=== PATIENT | female | born 1965 ===

== ENCOUNTER 2018-03-03 11:04 | Day surgery (SDC) | payer MEDICARE, OTHER ==
[2018-02-28 10:45] VITALS: BMI 30.2
[2018-03-03] MEDS ORDERED: ceFAZolin IV 2 gm in Dextrose 2 GM/50 ML BAG IVPB ONE (12:29)
[2018-03-03] MEDS ORDERED: Bupivacaine 0.5% Inj(30mL) INFIL ONE (12:29)
[2018-03-03] MEDS ORDERED: Lidocaine 2% Inj (20ml) INFIL ONE (12:29)
[2018-03-03] MEDS ORDERED: ceFAZolin IV 1 gm in Dextrose 2 GM/100 ML BAG IVPB ONE (12:38)
--- NOTE | 2018-03-03 12:49 | CP.PCM.PN ---
Subjective - Date & Time of Evaluation Date of Evaluation: 03/03/18 Time of Evaluation: 12:42 - Subjective Subjective: Podiatry progress note for attending Dr. Jimenez: 58 y/o F patient with PMH of B. Asthma seen and evaluated postoperatively for fracture right ankle. patient states that she had fracture in her right ankle in february 19. Patient states the pain was unbearable when it happen but now the pain decreases a lot. Patient states that she is aware of her surgery today. Patient confirmed her fasting stats today. Patient denies any other pedal complaint. Patient denies any recent F/V/C or SOB but she has episode of nausea today morning. PMH: B. Asthma PSH: , Hysterectomy, Appendectomy. Allergies: NSAID. Social Hx: Ex-smoker, stopped 15 days ago (Used to smoke 1 ppd for 35 Years), denies EtOH use or illicit drug use. Objective - Vital Signs/Intake and Output Vital Signs (last 24 hours): Temp Pulse Resp BP Pulse Ox 97.5 F L 91 H 14 129/91 H 98 03/03/18 11:49 03/03/18 12:17 03/03/18 11:49 03/03/18 11:49 03/03/18 11:49 - Medications Medications: Current Medications Cefazolin Sodium/Dextrose (Ancef Iv 2 Gm Duplex) 2 gm in 50 mls @ 50 mls/hr IVPB ONCE ONE; Protocol Stop: 03/03/18 13:28 Sodium Chloride 1,000 ml/ IV (SUPPLIES) 1,000 mls @ 4,082.34 mls/hr IV ONCE ONE Stop: 03/03/18 12:43 - Constitutional Appears: Well, Non-toxic, No Acute Distress - Head Exam Head Exam: ATRAUMATIC, NORMOCEPHALIC - Extremities Exam Additional comments: R LE focused exam: R B/K cast left intact Vasc: Cap refill < 3 sec in all digits. Neuro: gross and protective sensations are intact. MSK: muscle power intact 5/5 in all groups. Patient can perform active ROM with her toes - Neurological Exam Neurological Exam: Alert, Awake, Oriented x3 - Psychiatric Exam Psychiatric exam: Normal Affect, Normal Mood Assessment and Plan - Assessment and Plan (Free Text) Assessment: 53 y/o F patient seen and evaluated at the bed side preoperatively for R ankle ORIF. Plan: Patient seen and evaluated at the bedside Pt was explained procedure and post-operative course Pt understands all risks, benefits and Pt was seen and examined in SDS Pt NPO status was confirmed All Pre-op testing and clearance was in the chart Pt has exhausted all conservative treatment at this time and is opting for surgical inteAll pt's questions were answered to satisfaction No guarantees were made Benefits, risks and complications of procedure explained to the patient Pt will follow-up with Dr. Oseguera in her office upon discharge.
--- NOTE | 2018-03-03 12:50 | CP.SDSHP ---
Same Day Surgery H & P - History Proposed Procedure: Right ankle ORIF Pre-Op Diagnosis: R ankle fracture - Previous Medical/Surgical History Pulmonary: Asthma Previous Surgical History: Hysterectomy, and appendectomy. - Allergies Allergies: Allergies NSAIDS (Non-Steroidal Anti-Inflamma Allergy (Verified 03/03/18 11:28) STOMACH UPSET - Physical Exam Vital Signs: Vital Signs 03/03/18 03/03/18 11:49 12:17 Temperature 97.5 F L Pulse Rate 95 H 91 H Respiratory 14 Rate Blood Pressure 129/91 H O2 Sat by Pulse 98 Oximetry - {Optional Preform as Required} Integument: Other - Impression Pt. Evaluated Today:Candidate for Anesthesia & Procedure: Yes - Date & Time Date: 03/03/18 Time: 12:50 Short Stay Discharge - Short Stay Discharge Admitting Diagnosis/Reason for Visit: M84.371A Disposition: HOME/ ROUTINE Referrals: Dashawn Vallejo MD [Primary Care Provider] - Additional Instructions (Diet, Activity): - Patient in good/stable condition for discharge home - Pt to resume medications per medical reconciliation - Resume regular diet - Please keep dressing clean, dry, & intact to surgical site - Use plastic bag over bandage for showering - Wear post op shoe at all times when ambulating - Call clinic if you see signs of infection (redness, swelling, malodor) - Please make an appointment to see in office within 1 week for post-op check. Progress Note/Discharge Note with Instructions: - Patient evaluated bedside in recovery s/p surgical procedure. - After surgical procedure patient in NAD - (+) Void, (+) Appetite - Capillary refill time <3 sec and NVS intact. - Patient denies complaints at this time - Post operative instructions and plan of care explained to patient at length. - Pt. acknowledges understanding. - Patient stable for D/C per podiatric surgery
[2018-03-03] MEDS ORDERED: Bupivacaine HCl 0.5% PF (30 ml) Inj ONE (13:22)
[2018-03-03] MEDS ORDERED: Midazolam 2 MG/2 ML VIAL ONE (13:25)
[2018-03-03] MEDS ORDERED: Lidocaine 1% 5ml Abboject ONE (13:25)
[2018-03-03] MEDS ORDERED: Propofol 10 mg/ml Inj (20 ML) ONE (13:25)
[2018-03-03] MEDS ORDERED: Dexamethasone 4 mg/1 ml ONE (13:25)
[2018-03-03] MEDS ORDERED: Lidocaine 2% Jelly (5 ml) TOP ONE (13:26)
[2018-03-03] MEDS ORDERED: Lactated Ringer's 1,000 ML IV ONE ×2 (13:30→20:13)
[2018-03-03] MEDS ORDERED: Oxycodone/Acetaminophen 5/325 mg Tab PO PRN ×2 (15:56)
[2018-03-03] MEDS ORDERED: Ropivacaine 0.5% 30ML IV ONE (16:05)
[2018-03-03] MEDS ORDERED: Bupivacaine HCl 0.25% PF (30 ml) Inj ONE (16:08)
--- NOTE | 2018-03-03 17:12 | PCM.SURG1 ---
Surgeon's Initial Post Op Note - Surgeon's Notes Surgeon: Dr. Enio Oseguera. DPM Primary Grade Teacher: Dr. Bairon Villarreal. DPM/PGY3, Dr. Rosenda Hoyt. DPM/PGY2 Type of Anesthesia: General LMA, Block Regional Anesthesia Administered By: Dr. Miller Pre-Operative Diagnosis: R ankle fracture Operative Findings: See Dictation. Injectables: None. Materials: Synthes Contour fibular plate+ screws. Post-Operative Diagnosis: Same Operation Performed: ORIF Right ankle Specimen/Specimens Removed: None Estimated Blood Loss: EBL {In ML}: 5 Blood Products Given: N/A Drains Used: No Drains Post-Op Condition: Good Date of Surgery/Procedure: 03/03/18 Time of Surgery/Procedure: 17:12
[2018-03-03] MEDS: HYDROmorphone 0.5 mg/0.5 ml ISec IVP PRN ×2 (17:13→17:49)
--- NOTE | 2018-03-03 17:17 | PCM.ANESB2 ---
Popliteal Nerve Block - Popliteal Nerve Block Date of Procedure: 03/03/18 Anesthesiologist: Dr. Miller Pre-Procedure Diagnosis: S/P ORIF right ankle fracture Post-Procedure Diagnosis: S/P ORIF right ankle fracture Procedure Performed: Popliteal Nerve Block Right - Procedure Popliteal Nerve Block: This procedure was explained to the patient that it is for post-operative pain management. Consent was obtained after a thorough discussion with the patient regarding the benefits and possible complications of local anesthetic block of the sciatic nerve at the popliteal level. The patient was brought to the operating room and standard monitors are applied. Time-out was held with the circulating nurse to confirm the correct surgery and the appropriate block. After the surgery while still under general anesthesia, patient's operative leg was gently raised and supported and the groove in between the biceps femoris and vastus lateralis muscles was carefully palpated. The skin approximately 8cm above the popliteal crease was then marked. The ultrasound transducer was then applied to the posterior thigh approximately 8cm above the popliteal crease in the transverse plane and the sciatic nerve before its division was visualized lateral to the popliteal artery and in between the bicep femoris and semimembranosus/semitendinosus muscles. After identification, the lateral portion of the thigh was prepped with Chloraprep solution. At this point, a # 20 gauge Stimuplex insulated 4 inch needle was inserted into pre-marked area and advanced in a perpendicular direction. The needle was inserted above the ultrasound transducer in-plane towards the sciatic nerve in a [id number] direction. Needle advancement was performed carefully under direct ultrasound visualization. Nerve stimulator was used and dorsiflexion of the right foot was elicited at a current of 0.3 MA. After repeated negative a spiration, 5cc of 0.5% Ropivacaine was injected and this was flowed with 15cc of 0.5% Ropivacaine. Under ultrasound guidance the local anesthetics were observed surrounding sciatic nerve . The needle was removed intact and sterile dressing was applied. The patient tolerated the popliteal nerve block well with stable vital signs and was subsequently awaken from anesthesia. Then transported to PACU.
--- NOTE | 2018-03-03 17:26 | PCM.ANESB7 ---
Adductor Canal Block - Adductor Canal Block Date of Procedure: 03/03/18 Anesthiologist: Dr. Miller Pre-Procedure Diagnosis: S/P ORIF right ankle fracture Post-Procedure Diagnosis: S/P ORIF right ankle fracture Procedure Performed: Adductor Canal Block Right - Procedure Adductor Canal Block: The procedure was explained to the patient that it is for the post-operative pain management. Consent was obtained after a thorough discussion with the patient regarding the benefits and possible complications of local anesthetic adductor canal block of the femoral nerve. Standard monitors, as defined by the ASA, were applied to the patient. Time-out was held with the circulating nurse to confirm the appropriate block. After the surgery while still under general anesthesia, the patient in supine position with and the operative leg was flexed slightly at the knee and externally rotated as needed, and was kept anatomically stable. The mid-thigh of the right lower extremity was exposed. The ultrasound transducer was then applied transversely along the medial aspect, about midway down the thigh and the femoral artery and vein were identified in appropriate relation with the sartorius muscle. At this time, the saphenous nerve was visualized lateral to the femoral artery within the canal. After thorough identification, this area area was prepped with Chloroprep solution. At this point, a #20 gauge Stimuplex 4-inch needle was inserted in-plane in a [id number] orientation, and advanced toward the saphenous nerve. Advancement was performed carefully under direct ultrasound visualization. After negative aspiration, 2cc of 0.25% Bupivacaine was injected and this was followed with 13cc of 0.25% Bupivacaine. Under ultrasound guidance the local anesthetics were observed spreading around the saphenous nerve. The needle was removed intact and sterile dressing was applied. The patient had stable vital signs, was awaken from anesthesia and in no apparent distress. The patient tolerated the saphenous nerve block well with stable vital signs and was transported to PACU.
[2018-03-03] MEDS ORDERED: Albuterol 0.083% Inhal Sol (2.5 mg/3 mL) UD INH ONE (19:45)
[2018-03-03] MEDS ORDERED: Albuterol 0.083% Inhal Sol (2.5 mg/3 mL) UD ONE (19:45)
[2018-03-03 21:54] VITALS: RESP 19
[2018-03-03 23:35] VITALS: BP 124/76; PULSE 98; TEMP 98.3; O2SAT 96
--- NOTE | 2018-03-04 14:07 | RAD ---
Date of service: 03/03/2018 PROCEDURE: Right Ankle Radiographs. HISTORY: S/P R ankle ORIF COMPARISON: None FINDINGS: BONES: Postoperative findings include orthopedic hardware distal tibia and fibula. JOINTS: Normal. No osteoarthritis. Ankle mortise maintained. Talar dome intact SOFT TISSUES: Normal. OTHER FINDINGS: None. IMPRESSION: Satisfactory postoperative status.
--- NOTE | 2018-03-04 18:35 | PCM.OP ---
Operative Report - Operative Report Date of Surgery/Procedure: 03/03/18 Time of Surgery/Procedure: 14:00 Surgeon: Dr. Oseguera Phonograph Mechanic: Dr. Rodriguez, Dr. Adelaide Villarreal, Dr. Hoyt Anesthesia/Sedation: General and regional popliteal block Pre-Operative Diagnosis: 1)Right ankle closed tri-malleolar fracture Post-Operative Diagnosis: same Indication for Surgery: Indications: The patient is a 53 year-old female with the above diagnoses. The patient signed the consent after careful explanation of risks, benefits, complication and alternatives for surgical procedure. No guarantees were given nor implied. 900 mg of clindamycin IV was given to the pt hour prior to the procedure. NPO status was confirmed prior to taking pt to the OR. Operative Findings: Preparation: The patient was brought to the operating room and placed on the operating room table in supine position. A well-padded pneumatic thigh tourniquet was placed to the patient's Right lower extremity. After induction of general anesthesia, the Right lower extremity was then prepped and draped in usual sterile manner. Esmarch was utilized to exsanguinate the patient's Right foot. Pneumatic ankle tourniquet was then inflated to 350 mmHg and procedure began. Procedure/Operation Description: Name of Procedure: 1)Right ankle open reduction and internal fixation. PROCEDURE: Right ankle open reduction and internal fixation. Attention was directed to the lateral aspect of right ankle and the fracture site was confirmed under the interaoperative fluoroscopy. An approximately 6 cm linear longitudinal incision was made overlying fibular staying central right over the bone. At this time, the incision was carried deep using sharp and blunt dissection, taking care to retract all vital neurovascular structures. All bleeders were cauterized and ligated as necessary. At the level of the periosteum, a sharp periosteal incision was made overlying the distal fibula to allow exposure to the fracture site. The periosteum was reflected with a sharp periosteal elevator to allow for visualization of the fracture site. At this time, was an oblique fracture site with a posterior spike was visualized. Next, a bone clamp was utilized to reduce the fracture site brining the distal fibula back out to length. Next, following basic AO principles and techniques, a 3.5 cortex screw was placed as a lag screw from anteroproximal to posterodistal direction across the fracture site providing excellent compressio. Next, a Synthes pre-contoured fibular plate was placed over the fracture site and utilizing standard AO tachniques and principles, holes were filled with five 2.7 locking screws and two 3.5 cortex screws. Next, the surgical site was flushed with sterile normal saline. All screw locations were confirmed to be in proper alignment under the intra operative fluoroscopy. Attention was re-directed to the medial aspect of the distal tibia of the right lower extremity. Utilizing #15 blade an approximately 5 cm curved linear incision was made overlying the tibia staying central over the bone. At this time, the incision was carried deep using sharp and blunt dissection, taking care to retract all vital neurovascular structures. All bleeders were cauterized and ligated as necessary. At the level of the periosteum, a sharp periosteal incision was made overlying the distal tibia to allow exposure to the fracture site. The periosteum was reflected with a sharp periosteal elevator. At this time, distal aspect of medial malleolus was noted to be fractured sagittal into two pieces comprised of anterior piece and a posterior piece. Utilizing a small bone clamp and a dental pick, the anterior fracture fragment of medial malleolus was reduced proximally brining the distal medial malleolus back out to length and was temporary fixated with two k-wires. Next, based on AO technique and principles, the fracture site was fixed with a 3.5 x 48 mm partially threaded cancellous screw. Next, temporary fixated k-wires were removed. Proper screw orientation was confirmed under intraoperative fluoroscopy. Next, attention was directed to the posterior fragment of the medial malleolus. Utilizing a small bone clamp and a dental pick, the posteior fracture fragment of medial malleolus was reduced proximally brining the distal medial malleolus back out to length and was temporary fixated with a k-wire. Next, based on AO technique and principles, the fracture site was fixed with a 2.7 x 10 mm fully threaded cortical screw. Next, temporary fixated k-wires were removed. Proper screw orientation was confirmed under intraoperative fluoroscopy. The surgical site was irrigated with copious amount of normal sterile saline. Next, under intra-operative fluoroscopy, inversion stress test of right ankle was performed and no diastasis of the tibia fibular space was noted, indicating intact syndesmotic ligament. Deep soft tissues of right ankle were reapproximated with #2-0, #3-0 and #4-0 Vicryl and Skin was reapproximated with #4-0 Prolene in horizontal mattress suture technique. Medial aspect of the right ankle was infiltrated with 10ml of 0.5% Marcaine plain. Right lower extremity was dressed with Betadine soaked adaptic, 4x4, Kerlix and a bivalve below knee hard cast. The attending was present during the entire case. Estimated Blood Loss: 15 mL Complications: None Discharge & Condition: Postoperative Condition: The patient tolerated the anesthesia and procedure well and was escorted to the recovery room with vital signs stable and neurovascular status intact to the Right foot. The patient received regional popliteal block by the anesthesiologist post operatively. This patient will follow up with Dr. Oseguera.
== END 2018-03-03 23:40 | disposition home or self-care (01) ==
LOC: H.OPSURG 11:04 → H.MEDSURG1 20:45 → H.OPSURG 23:40
PROVIDERS: ATTEND Student in an Organized Health Care Education/Training Program
DX: S82.851A Displaced trimalleolar fracture of right lower leg, initial encounter for closed fracture (principal); J45.909 Unspecified asthma, uncomplicated; Z87.891 Personal history of nicotine dependence; X58.XXXA Exposure to other specified factors, initial encounter
CPT/HCPCS: 27823; 73610; 97161; G8978; G8979; J0690; J1100; J1170; J2250; J2405; J2704; J2765; J3010; J7030; J7120

== ENCOUNTER 2018-03-26 11:08 | Emergency (ER) | payer MEDICARE, OTHER ==
[2018-03-26 11:09] VITALS: BMI 30.2
[2018-03-26 11:45] VITALS: RESP 16; TEMP 98.6
--- NOTE | 2018-03-26 12:23 | ED PDOC ---
Lower Extremity Pain/Injury Time Seen by Provider: 03/26/18 12:10 Chief Complaint (Nursing): Lower Extremity Problem/Injury Chief Complaint (Provider): right leg pain History Per: Patient Additional Complaint(s): 53-year-old female presents with pain and swelling to right calf 2 days. Patient is status post right ankle surgery on March 03. She was seen today by her surgeon, Dr. Oseguera, and was advised to come to ED for rule out DVT. Patient denies any chest pain or shortness of breath, no fever or chills. Past Medical History Reviewed: Historical Data, Nursing Documentation, Vital Signs Vital Signs: Last Vital Signs Temp 98.6 F 03/26/18 11:21 Pulse 91 H 03/26/18 11:21 Resp 16 03/26/18 11:21 BP 146/78 03/26/18 11:21 Pulse Ox 97 03/26/18 11:21 - Medical History PMH: Anxiety, Asthma, Depression, Gastritis, GERD - Surgical History Surgical History: Appendectomy, Other surgeries: hysterectomy - Family History Family History: States: No Known Family Hx - Living Arrangements Living Arrangements: With Family - Social History Current smoker - smoking cessation education provided: Yes Alcohol: Social Drugs: Denies - Home Medications Home Medications: Ambulatory Orders Medication Instructions Recorded Clonazepam [Klonopin] 0.5 mg PO BID 09/10/16 Albuterol HFA [Ventolin HFA 90 1 puff PO DAILY PRN 02/28/18 mcg/actuation (8 g)] Montelukast [Singulair] 10 mg PO DAILY 02/28/18 Albuterol/Ipratropium [Duoneb 3 3 ml IH PRN PRN 03/03/18 MG/3 Ml-0.5 MG/3 Ml 3 Ml] - Allergies Allergies/Adverse Reactions: Allergies Allergy/AdvReac Type Severity Reaction Status Date / Time NSAIDS (Non-Steroidal AdvReac STOMACH Verified 03/26/18 11:20 Anti-Inflamma UPSET Wells Criteria for PE - Wells Criteria for Pulmonary Embolism Clinical Signs and Symptoms of DVT: Yes P.E is #1 Diagnosis, or Equally Likely: No Heart Rate >100: No Immobilization at least 3 days;Surgery previous 4 weeks: No Previous, objectively diagnosed PE or DVT: No Hemoptysis: No Malignancy w/treatment within 6 months, or palliative: No Total Score: 3 Review of Systems ROS Statement: Except As Marked, All Systems Reviewed And Found Negative Constitutional: Negative for: Fever, Chills Musculoskeletal: Positive for: Other (right calf pain) Physical Exam - Reviewed Nursing Documentation Reviewed: Yes Vital Signs Reviewed: Yes - Physical Exam Appears: Positive for: Well, Non-toxic, No Acute Distress Skin: Positive for: Normal Color. Negative for: Rash Eye Exam: Positive for: Normal appearance Extremity: Positive for: Other (Mild swelling and tenderness to right calf, no skin breakdown or cellulitis noted) Neurologic/Psych: Positive for: Alert, Oriented - ECG O2 Sat by Pulse Oximetry: 97 Pulse Ox Interpretation: Normal - Other Rad Right leg US X-Ray: Read By Radiologist X-Ray Interpretation: no DVT Medical Decision Making Medical Decision Makin53 y/o female with post-operative right calf pain Plan: PO percocet US right leg US is negative. Dr. Henry from podiatry at bedside, splint was applied by Dr. Henry. Patient has follow up in [address] Oseguera. Disposition - Clinical Impression Clinical Impression: Right leg pain - Patient ED Disposition Is Patient to be Admitted: No Counseled Patient/Family Regarding: Studies Performed, Diagnosis, Need For Followup - Disposition Referrals: Enio Oseguera DPM [Medical Doctor] - Disposition: Routine/Home Disposition Time: 14:44 Condition: STABLE Additional Instructions: Follow up as directed with Dr. Oseguera. Instructions: Ankle Fracture Forms: [employer] (Sammarinese)
[2018-03-26] MEDS ORDERED: Oxycodone/Acetaminophen 5/325 mg Tab PO STA (12:36)
[2018-03-26] MEDS ORDERED: Oxycodone/Acetaminophen 5/325 mg Tab ONE (13:00)
--- NOTE | 2018-03-26 14:29 | US ---
Date of service: 03/26/2018 PROCEDURE: Right lower extremity venous duplex Doppler. HISTORY: calf swelling and tenderness, rule out DVT COMPARISON: None available. TECHNIQUE: Common femoral, superficial femoral, popliteal and posterior tibial veins were evaluated. Flow was assessed with color Doppler, compressibility, assessment of phasic flow and augmentation response. FINDINGS: COMMON FEMORAL VEIN: Unremarkable. SUPERFICIAL FEMORAL VEIN: Unremarkable. POPLITEAL VEIN: Unremarkable. POSTERIOR TIBIAL VEIN: Unremarkable. OTHER FINDINGS: None. IMPRESSION: No evidence of deep venous thrombosis in the right lower extremity.
--- NOTE | 2018-03-26 15:00 | CP.PCM.CON ---
History of Present Illness - History of Present Illness History of Present Illness: Podiatry Consult Note for Dr. Oseguera: 53 yo female patient, with PMHx of asthma, seen and evaluated for R calf pain. Patient was sent to ED from Dr. Oseguera's office for R calf pain and to r/o DVT. Patient reports having an ankle surgery early March and has been casted ever since. She reports pain to the calf which started a few days ago. She denies any other pedal complaints at this time. Denies N/V/F/SOB/CP. PMHx: Asthma PSHx: Denies ALL: NKDA Social history: smokes 1 pack every 2 days, denies alcohol or drug use Review of Systems - Review of Systems Review of Systems: As per HPI Past Patient History - Infectious Disease Hx of Infectious Diseases: None - Past Medical History & Family History Past Medical History?: Yes - Past Social History Alcohol: Social Drugs: Denies - PULMONARY Hx Asthma: Yes - NEUROLOGICAL Hx Neurological Disorder: No - HEENT Hx HEENT Problems: No - RENAL Hx Chronic Kidney Disease: No - ENDOCRINE/METABOLIC Hx Endocrine Disorders: No - HEMATOLOGICAL/ONCOLOGICAL Hx Blood Disorders: No Hx Blood Transfusions: Yes Hx Blood Transfusion Reaction: No - INTEGUMENTARY Hx Dermatological Problems: No - MUSCULOSKELETAL/RHEUMATOLOGICAL Hx Musculoskeletal Disorders: No Hx Falls: Yes - GASTROINTESTINAL Hx Gastritis: Yes - GENITOURINARY/GYNECOLOGICAL Hx Genitourinary Disorders: No - PSYCHIATRIC Hx Anxiety: Yes Hx Depression: Yes - SURGICAL HISTORY Hx Appendectomy: Yes - ANESTHESIA Hx Anesthesia: Yes Hx Anesthesia Reactions: No Hx Malignant Hyperthermia: No Meds Allergies/Adverse Reactions: Allergies Allergy/AdvReac Type Severity Reaction Status Date / Time NSAIDS (Non-Steroidal AdvReac STOMACH Verified 03/26/18 11:20 Anti-Inflamma UPSET Physical Exam - Constitutional Appears: Well, Non-toxic, No Acute Distress - Head Exam Head Exam: ATRAUMATIC, NORMOCEPHALIC - Extremities Exam Additional comments: Right lower extremity exam: Vascular: DP/PT 2/4, CFT <3 secs, TG warm to warm, no edema noted to ankle Derm: Dressing applied at Dr. Oseguera's office today left clean, dry, intact Neuro: Gross and protective sensation intact to right lower extremity Ortho: Mild pain upon palpation to lateral aspect of ankle, no pain with calf compression appreciated - Neurological Exam Neurological exam: Alert, Oriented x3 - Psychiatric Exam Psychiatric exam: Normal Affect, Normal Mood Results - Vital Signs Recent Vital Signs: Last Vital Signs Temp 98.6 F 03/26/18 11:21 Pulse 91 H 03/26/18 11:21 Resp 16 03/26/18 11:21 BP 146/78 03/26/18 11:21 Pulse Ox 97 03/26/18 14:50 Assessment & Plan - Assessment and Plan (Free Text) Assessment: 53 yo female patient, with PMHx of asthma, seen and evaluated for R calf pain r/o DVT Plan: Patient seen and evaluated with all questions and concerns addressed R lower extremity venous duplex doppler; Negative for DVT Below knee cast applied to RLE Patient to follow up in Dr. Oseguera's office at her next appointment in 2 weeks. Thank you for the consult - Date & Time Date: 03/26/18 Time: 14:58
[2018-03-26 15:22] VITALS: BP 134/90; PULSE 90; O2SAT 99
== END 2018-03-26 15:24 | disposition home or self-care (01) ==
LOC: H.ER 11:08
DX: M79.604 Pain in right leg (principal)